=== PATIENT | male | born 1955 | race Caucasian/White ===

== ENCOUNTER 2018-06-06 07:47 | Inpatient (IN) | payer MEDICARE, OTHER ==
[~2018-06-06] VITALS: Ht 177.8 cm; Wt 118.1 kg
[2018-06-06 08:46] LABS: BASOPHILS % (AUTO) 0.1 % (0-1); EOSINOPHILS # (AUTO) 0.1 X10'3 (0-0.9); HEMATOCRIT 39.1 % (42.0-52.0); HEMOGLOBIN 13.3 g/dl (14.0-17.9); LYMPHOCYTES # (AUTO) 0.5 X10'3 (1.1-4.8); LYMPHOCYTES % (AUTO) 4.8 % (21-51); MEAN CORPUSCULAR HEMOGLOBIN 31.3 PG (27.0-31.0); MEAN CORPUSCULAR HGB CONC 33.9 % (33.0-36.5); MEAN CORPUSCULAR VOLUME 92.2 FL (78-98); MEAN PLATELET VOLUME 9.8 FL (7.4-10.4); MONOCYTES # (AUTO) 0.5 X10'3 (0-0.9); MONOCYTES % (AUTO) 4.6 % (2-12); NEUTROPHILS # (AUTO) 10.2 X10'3 (1.8-7.7); NEUTROPHILS % (AUTO) 89.5 % (42-75); PLATELET COUNT 196 X10'3 (140-440); RED BLOOD COUNT 4.24 X10'6 (4.70-6.10); RED CELL DISTRIBUTION WIDTH 12.3 % (11.5-14.5); WHITE BLOOD COUNT 11.4 X10'3 (4.5-11.0)
[2018-06-06 09:04] LABS: ALANINE AMINOTRANSFERASE 34 U/L (12-78); ALBUMIN 3.1 G/DL (3.4-5.0); ALBUMIN/GLOBULIN RATIO 0.7 (1.1-1.5); ALKALINE PHOSPHATASE 73 IU/L (46-116); ANION GAP 13 (8-16); ASPARTATE AMINO TRANSFERASE 33 U/L (10-37); BILIRUBIN,TOTAL 1.2 MG/DL (0.1-1.0); BLOOD UREA NITROGEN 17 MG/DL (7-18); BUN/CREATININE RATIO 14.2 (5.4-32.0); CALCIUM 8.5 MG/DL (8.5-10.1); CHLORIDE 100 MMOL/L (99-107); GLUCOSE 127 MG/DL (70-104); INR 1.1 INR; PROTHROMBIN TIME 10.9 SECONDS (9.0-12.0); SODIUM 138 MMOL/L (135-145); TOTAL CARBON DIOXIDE 25.3 MMOL/L (24-32); TOTAL PROTEIN 7.3 G/DL (6.4-8.2); eGFR 61 ML/MIN
[2018-06-06 09:05] LABS: PARTIAL THROMBOPLASTIN TIME 35 SECONDS (22-32)
[2018-06-06] MEDS ORDERED: levoFLOXACIN-Levaquin 750MG/D5 150 ML IV ONE (09:05)
[2018-06-06] MEDS ORDERED: normal saline 1000ML IV soln IVB ONE (09:05)
[2018-06-06] MEDS ORDERED: potassium Cl 20 mEq SR tablet PO STA (09:13)
[2018-06-06 09:16] LABS: TOTAL CELLS COUNTED 100
[2018-06-06 09:17] LABS: PLATELET ESTIMATE NORMAL; POLYCHROMASIA FEW; TOXIC GRANULATION 1+
[2018-06-06] MEDS ORDERED: ipratropium/albuterol 3ml nebule NEB ONE (09:20)
[2018-06-06] MEDS ORDERED: ondansetron/PF 4mg/2ml inj IV PRN (09:40)
[2018-06-06] MEDS ORDERED: azithromycin 250mg tablet PO ONE (09:40)
[2018-06-06] MEDS ORDERED: acetaminophen 325mg tablet PO PRN (09:40)
[2018-06-06] MEDS ORDERED: mag hydrox/Alum hydrox/simeth 30ml oral suspension PO PRN (09:40)
[2018-06-06] MEDS ORDERED: magnesium hydroxide 30ml (MOM) UD suspension PO PRN (09:40)
[2018-06-06] MEDS: ipratropium/albuterol 3ml nebule NEB SCH ×4 (12:06→23:35)
[2018-06-06 12:45] VITALS: BP 139/64
--- NOTE | 2018-06-06 13:00 | NUR ---
Patient in room PCU 3018B. I have received report from Cruz STEWART and had the opportunity to ask questions and assume patient care. First set of vital signs is: T 98.9 oral SpO2 95% on 3L via NC, BP 139/64, HR 95, RR 36.
[2018-06-06] MEDS ORDERED: potassium Cl 40MEQ/NS 500ml 500 ML IV PRN ×2 (14:55)
[2018-06-06] MEDS ORDERED: potassium Cl 20 mEq SR tablet PO PRN (14:55)
[2018-06-06 15:00] VITALS: BP 133/54
[2018-06-06] MEDS: K and/or MAG REPLACEMENT MC SCH (15:14)
[2018-06-06] MEDS: potassium Cl 20 mEq SR tablet PO PRN (17:36)
[2018-06-06 18:00] VITALS: BP 141/66
--- NOTE | 2018-06-06 18:24 | NUR ---
Problems reprioritized. Patient report given, questions answered & plan of care reviewed with Zulay STEWART.
--- NOTE | 2018-06-06 18:25 | NUR ---
Orientee documentation: I have reviewed and agree with all interventions, assessments performed and documented by Scott STEWART. Orientee Medication Administration: For this medication-pass time frame, all medication were reviewed, dispensed, administered and documented per hospital policy by Scott STEWART.
--- NOTE | 2018-06-06 18:30 | NUR ---
Patient in room PCU 3018. I have received report from Scott STEWART and had the opportunity to ask questions and assume patient care with Yvette STEWART.
--- NOTE | 2018-06-06 19:15 | NUR ---
Patient in room U 3018B. I have received report from Scott STEWART and had the opportunity to ask questions and assume patient care. Patient sitting on the side of the bed. No needs at this time.
[2018-06-06] MEDS: heparin, porcine 5000 units/ml vial SQ SCH (20:25)
--- NOTE | 2018-06-06 21:14 | NUR ---
Problems reprioritized. Patient report given, questions answered & plan of care reviewed with Ehsan STEWART.
[2018-06-06 23:00] VITALS: BP 122/71
[2018-06-07 03:00] VITALS: BP 119/58
[2018-06-07] MEDS: ipratropium/albuterol 3ml nebule NEB SCH ×5 (04:03→20:31)
[2018-06-07 05:31] LABS: CLARITY,URINE CLEAR (Clear); COLOR,URINE AMBER (Yellow); GLUCOSE, URINE NEGATIVE (Neg); KETONES,URINE 15 mg/dl (Neg); LEUKOCYTE ESTERASE ,URINE NEGATIVE (Neg); NITRITES, URINE NEGATIVE (Neg); OCCULT BLOOD,URINE TRACE-INTACT (Neg); PH,URINE 5.5 (4.8-8.0); PROTEIN,URINE 100 mg/dl (Neg); UA COLLECTION TYPE CLN CATCH MIDSTREAM
[2018-06-07 05:40] LABS: WBC,URINE 0-4 /HPF (0-4)
[2018-06-07 05:42] LABS: BACTERIA,URINE FEW /HPF (Neg); MUCUS STRANDS MANY /LPF (Neg); RBC,URINE 0-2 /HPF (0-2); SQUAMOUS EPITHELIAL CELL,UR FEW /LPF (FEW)
[2018-06-07 06:00] VITALS: BP 139/70
--- NOTE | 2018-06-07 06:41 | NUR ---
Patient in room PCU 3018. I have received report from Aly STEWART and had the opportunity to ask questions and assume patient care. Pt alert and oriented X 4. Will continue to monitor.
[2018-06-07 06:43] LABS: BASOPHILS % (AUTO) 0.2 % (0-1); EOSINOPHILS # (AUTO) 0.1 X10'3 (0-0.9); EOSINOPHILS % (AUTO) 0.8 % (0-6); HEMATOCRIT 35.7 % (42.0-52.0); HEMOGLOBIN 12.3 g/dl (14.0-17.9); LYMPHOCYTES # (AUTO) 0.8 X10'3 (1.1-4.8); LYMPHOCYTES % (AUTO) 9.4 % (21-51); MEAN CORPUSCULAR HEMOGLOBIN 31.9 PG (27.0-31.0); MEAN CORPUSCULAR HGB CONC 34.4 % (33.0-36.5); MEAN CORPUSCULAR VOLUME 92.9 FL (78-98); MEAN PLATELET VOLUME 10.4 FL (7.4-10.4); MONOCYTES # (AUTO) 0.7 X10'3 (0-0.9); MONOCYTES % (AUTO) 8.2 % (2-12); NEUTROPHILS # (AUTO) 7.2 X10'3 (1.8-7.7); NEUTROPHILS % (AUTO) 81.4 % (42-75); PLATELET COUNT 195 X10'3 (140-440); RED BLOOD COUNT 3.84 X10'6 (4.70-6.10); RED CELL DISTRIBUTION WIDTH 12.6 % (11.5-14.5); WHITE BLOOD COUNT 8.9 X10'3 (4.5-11.0)
[2018-06-07 06:47] LABS: ALANINE AMINOTRANSFERASE 60 U/L (12-78); ALBUMIN 2.6 G/DL (3.4-5.0); ALBUMIN/GLOBULIN RATIO 0.6 (1.1-1.5); ALKALINE PHOSPHATASE 62 IU/L (46-116); ANION GAP 12 (8-16); ASPARTATE AMINO TRANSFERASE 58 U/L (10-37); BILIRUBIN,TOTAL 0.7 MG/DL (0.1-1.0); BLOOD UREA NITROGEN 16 MG/DL (7-18); CALCIUM 8.4 MG/DL (8.5-10.1); CHLORIDE 103 MMOL/L (99-107); CREATININE 1.07 MG/DL (0.60-1.10); GLUCOSE 107 MG/DL (70-104); POTASSIUM 3.2 MMOL/L (3.5-5.1); SODIUM 139 MMOL/L (135-145); TOTAL CARBON DIOXIDE 23.6 MMOL/L (24-32); TOTAL PROTEIN 6.7 G/DL (6.4-8.2); eGFR 69 ML/MIN
[2018-06-07] MEDS: potassium Cl 20 mEq SR tablet PO PRN ×2 (07:43→18:16)
[2018-06-07] MEDS: CefTRIAXone 2gm/D5W 50ml 50 ML IV SCH (07:44)
[2018-06-07] MEDS: azithromycin 250mg tablet PO SCH (07:44)
[2018-06-07] MEDS: heparin, porcine 5000 units/ml vial SQ SCH ×2 (07:44→20:25)
[2018-06-07] MEDS: K and/or MAG REPLACEMENT MC SCH (08:00)
[2018-06-07 09:01] LABS: MAGNESIUM 2.2 MG/DL (1.5-2.4)
[2018-06-07] MEDS ORDERED: pneumococcal 23-VAL P-sac vacc 25 mcg/0.5ml vial IMVAC ONE (10:00)
[2018-06-07 11:00] VITALS: BP 130/72
[2018-06-07] MEDS ORDERED: ALFU10TA PO (13:55)
[2018-06-07] MEDS ORDERED: LOSA100T57 PO (13:55)
[2018-06-07] MEDS ORDERED: AMLO5TAB PO (13:55)
[2018-06-07] MEDS ORDERED: LOVA20TA2 PO (13:55)
[2018-06-07] MEDS ORDERED: LOSA1TAB41 PO (14:11)
[2018-06-07 15:00] VITALS: BP 132/69
--- NOTE | 2018-06-07 18:40 | NUR ---
Problems reprioritized. Patient report given, questions answered & plan of care reviewed with Silas STEWART.
[2018-06-07 19:00] VITALS: BP 145/72
[2018-06-07] MEDS: tamsulosin 0.4mg capsule PO SCH (20:24)
[2018-06-07 23:00] VITALS: BP 151/89
[2018-06-08] MEDS: ipratropium/albuterol 3ml nebule NEB SCH ×7 (00:01→23:06)
[2018-06-08 03:00] VITALS: BP 133/71
[2018-06-08 05:43] LABS: BASOPHILS % (AUTO) 0.3 % (0-1); EOSINOPHILS # (AUTO) 0.3 X10'3 (0-0.9); EOSINOPHILS % (AUTO) 3.3 % (0-6); HEMATOCRIT 37.3 % (42.0-52.0); HEMOGLOBIN 12.6 g/dl (14.0-17.9); MEAN CORPUSCULAR HEMOGLOBIN 31.6 PG (27.0-31.0); MEAN CORPUSCULAR HGB CONC 33.8 % (33.0-36.5); MEAN CORPUSCULAR VOLUME 93.5 FL (78-98); MEAN PLATELET VOLUME 8.8 FL (7.4-10.4); MONOCYTES # (AUTO) 0.7 X10'3 (0-0.9); MONOCYTES % (AUTO) 7.5 % (2-12); NEUTROPHILS # (AUTO) 7.1 X10'3 (1.8-7.7); NEUTROPHILS % (AUTO) 77.9 % (42-75); PLATELET COUNT 232 X10'3 (140-440); RED BLOOD COUNT 3.99 X10'6 (4.70-6.10); RED CELL DISTRIBUTION WIDTH 13.3 % (11.5-14.5); WHITE BLOOD COUNT 9.1 X10'3 (4.5-11.0)
[2018-06-08 06:00] VITALS: BP 135/67
[2018-06-08 06:00] LABS: ALANINE AMINOTRANSFERASE 178 U/L (12-78); ALBUMIN 2.6 G/DL (3.4-5.0); ALBUMIN/GLOBULIN RATIO 0.7 (1.1-1.5); ALKALINE PHOSPHATASE 64 IU/L (46-116); ANION GAP 10 (8-16); ASPARTATE AMINO TRANSFERASE 121 U/L (10-37); BILIRUBIN,TOTAL 0.5 MG/DL (0.1-1.0); BLOOD UREA NITROGEN 16 MG/DL (7-18); BUN/CREATININE RATIO 15.8 (5.4-32.0); CHLORIDE 106 MMOL/L (99-107); CREATININE 1.01 MG/DL (0.60-1.10); GLUCOSE 112 MG/DL (70-104); POTASSIUM 3.6 MMOL/L (3.5-5.1); SODIUM 140 MMOL/L (135-145); TOTAL CARBON DIOXIDE 24.3 MMOL/L (24-32); TOTAL PROTEIN 6.6 G/DL (6.4-8.2); eGFR 74 ML/MIN
--- NOTE | 2018-06-08 06:45 | NUR ---
Patient in room PCU 3018. I have received report from Silas STEWART and had the opportunity to ask questions and assume patient care. ill continue to monitor.
[2018-06-08] MEDS: K and/or MAG REPLACEMENT MC SCH (08:00)
[2018-06-08] MEDS: CefTRIAXone 2gm/D5W 50ml 50 ML IV SCH (08:12)
[2018-06-08] MEDS: losartan 50mg tablet PO SCH (08:13)
[2018-06-08] MEDS: azithromycin 250mg tablet PO SCH (08:14)
[2018-06-08] MEDS: HYDROchlorothiazide 12.5mg capsule PO SCH (08:14)
[2018-06-08] MEDS: amLODIPine 5mg tablet PO SCH (08:14)
[2018-06-08] MEDS: atorvastatin 10mg tablet PO SCH (08:14)
[2018-06-08] MEDS: tamsulosin 0.4mg capsule PO SCH ×2 (08:15→19:23)
[2018-06-08] MEDS: heparin, porcine 5000 units/ml vial SQ SCH ×2 (08:16→19:22)
[2018-06-08 11:00] VITALS: BP 134/71
[2018-06-08] MEDS ORDERED: predniSONE 20 mg tablet PO ONE (11:15)
[2018-06-08 15:00] VITALS: BP 101/49
--- NOTE | 2018-06-08 18:11 | NUR ---
Problems reprioritized. Patient report given, questions answered & plan of care reviewed with Silas STEWART.
[2018-06-08 19:00] VITALS: BP 134/74
--- NOTE | 2018-06-08 20:40 | NUR ---
promotional table spacer PAGER ID: [phone] MESSAGE: Silas briseno [id number] [id number], admitted for R/S PNE Pt requesting sleeping pill
[2018-06-08] MEDS: temazepam 15mg capsule PO PRN (21:23)
[2018-06-08 23:00] VITALS: BP 119/75
[2018-06-09 03:00] VITALS: BP 161/100
[2018-06-09] MEDS: ipratropium/albuterol 3ml nebule NEB SCH ×6 (03:09→23:46)
[2018-06-09 06:00] VITALS: BP 132/72
[2018-06-09 06:07] LABS: BASOPHILS % (AUTO) 0.1 % (0-1); EOSINOPHILS # (AUTO) 0.3 X10'3 (0-0.9); HEMOGLOBIN 12.7 g/dl (14.0-17.9); LYMPHOCYTES # (AUTO) 1.3 X10'3 (1.1-4.8); LYMPHOCYTES % (AUTO) 12.2 % (21-51); MEAN CORPUSCULAR HEMOGLOBIN 31.1 PG (27.0-31.0); MEAN CORPUSCULAR HGB CONC 33.5 % (33.0-36.5); MEAN CORPUSCULAR VOLUME 92.9 FL (78-98); MEAN PLATELET VOLUME 9.5 FL (7.4-10.4); MONOCYTES # (AUTO) 0.6 X10'3 (0-0.9); MONOCYTES % (AUTO) 5.8 % (2-12); NEUTROPHILS # (AUTO) 8.4 X10'3 (1.8-7.7); NEUTROPHILS % (AUTO) 78.9 % (42-75); PLATELET COUNT 273 X10'3 (140-440); RED BLOOD COUNT 4.09 X10'6 (4.70-6.10); RED CELL DISTRIBUTION WIDTH 12.9 % (11.5-14.5); WHITE BLOOD COUNT 10.7 X10'3 (4.5-11.0)
--- NOTE | 2018-06-09 06:17 | NUR ---
Patient in room PCU 3018. I have received report from Silas STEWART and had the opportunity to ask questions and assume patient care.
[2018-06-09 06:20] LABS: ALANINE AMINOTRANSFERASE 161 U/L (12-78); ALBUMIN 2.6 G/DL (3.4-5.0); ALBUMIN/GLOBULIN RATIO 0.6 (1.1-1.5); ALKALINE PHOSPHATASE 70 IU/L (46-116); ANION GAP 11 (8-16); ASPARTATE AMINO TRANSFERASE 59 U/L (10-37); BILIRUBIN,TOTAL 0.5 MG/DL (0.1-1.0); CALCIUM 8.6 MG/DL (8.5-10.1); CHLORIDE 105 MMOL/L (99-107); CREATININE 0.92 MG/DL (0.60-1.10); GLUCOSE 106 MG/DL (70-104); POTASSIUM 3.8 MMOL/L (3.5-5.1); SODIUM 140 MMOL/L (135-145); TOTAL CARBON DIOXIDE 24.4 MMOL/L (24-32); TOTAL PROTEIN 6.8 G/DL (6.4-8.2); eGFR 83 ML/MIN
[2018-06-09 06:34] LABS: BLOOD UREA NITROGEN 15 MG/DL (7-18); BUN/CREATININE RATIO 16.3 (5.4-32.0)
[2018-06-09] MEDS: CefTRIAXone 2gm/D5W 50ml 50 ML IV SCH (07:40)
[2018-06-09] MEDS: atorvastatin 10mg tablet PO SCH (07:40)
[2018-06-09] MEDS: tamsulosin 0.4mg capsule PO SCH ×2 (07:41→19:22)
[2018-06-09] MEDS: amLODIPine 5mg tablet PO SCH (07:41)
[2018-06-09] MEDS: HYDROchlorothiazide 12.5mg capsule PO SCH (07:41)
[2018-06-09] MEDS: predniSONE 20 mg tablet PO SCH (07:41)
[2018-06-09] MEDS: losartan 50mg tablet PO SCH (07:41)
[2018-06-09] MEDS: azithromycin 250mg tablet PO SCH (07:41)
[2018-06-09] MEDS: heparin, porcine 5000 units/ml vial SQ SCH ×2 (07:42→19:23)
[2018-06-09] MEDS: K and/or MAG REPLACEMENT MC SCH (08:00)
[2018-06-09 11:00] VITALS: BP_SYST 132; BP_SYST 135; BP_DIAS 72; BP_DIAS 73
[2018-06-09 18:00] VITALS: BP 126/73
--- NOTE | 2018-06-09 18:33 | NUR ---
Patient in room PCU 3018. I have received report from Lori STEWART and had the opportunity to ask questions and assume patient care.
--- NOTE | 2018-06-09 18:33 | NUR ---
Problems reprioritized. Patient report given, questions answered & plan of care reviewed with Babita STEWART.
[2018-06-09] MEDS: lactobacillus rhamnosus 10,000 MMU CELLS/CAPSULE PO SCH (19:22)
[2018-06-09] MEDS: temazepam 15mg capsule PO PRN (21:18)
[2018-06-09 22:00] VITALS: BP 144/81
[2018-06-10 02:00] VITALS: BP 144/86
[2018-06-10] MEDS: ipratropium/albuterol 3ml nebule NEB SCH ×3 (03:31→11:00)
[2018-06-10 05:48] LABS: BASOPHILS % (AUTO) 0.4 % (0-1); EOSINOPHILS # (AUTO) 0.3 X10'3 (0-0.9); EOSINOPHILS % (AUTO) 2.9 % (0-6); HEMOGLOBIN 12.5 g/dl (14.0-17.9); LYMPHOCYTES # (AUTO) 1.8 X10'3 (1.1-4.8); LYMPHOCYTES % (AUTO) 16.7 % (21-51); MEAN CORPUSCULAR HEMOGLOBIN 30.9 PG (27.0-31.0); MEAN CORPUSCULAR HGB CONC 32.9 % (33.0-36.5); MEAN CORPUSCULAR VOLUME 93.9 FL (78-98); MEAN PLATELET VOLUME 9.2 FL (7.4-10.4); MONOCYTES # (AUTO) 0.7 X10'3 (0-0.9); MONOCYTES % (AUTO) 6.7 % (2-12); NEUTROPHILS # (AUTO) 7.8 X10'3 (1.8-7.7); NEUTROPHILS % (AUTO) 73.3 % (42-75); PLATELET COUNT 291 X10'3 (140-440); RED BLOOD COUNT 4.04 X10'6 (4.70-6.10); RED CELL DISTRIBUTION WIDTH 13.1 % (11.5-14.5); WHITE BLOOD COUNT 10.6 X10'3 (4.5-11.0)
[2018-06-10 06:00] VITALS: BP 134/77
[2018-06-10 06:08] LABS: ALANINE AMINOTRANSFERASE 199 U/L (12-78); ALBUMIN 2.7 G/DL (3.4-5.0); ALBUMIN/GLOBULIN RATIO 0.7 (1.1-1.5); ALKALINE PHOSPHATASE 68 IU/L (46-116); ANION GAP 10 (8-16); ASPARTATE AMINO TRANSFERASE 113 U/L (10-37); BILIRUBIN,TOTAL 0.3 MG/DL (0.1-1.0); BLOOD UREA NITROGEN 16 MG/DL (7-18); BUN/CREATININE RATIO 16.2 (5.4-32.0); CALCIUM 8.6 MG/DL (8.5-10.1); CHLORIDE 104 MMOL/L (99-107); CREATININE 0.99 MG/DL (0.60-1.10); GLUCOSE 96 MG/DL (70-104); POTASSIUM 3.6 MMOL/L (3.5-5.1); SODIUM 141 MMOL/L (135-145); TOTAL CARBON DIOXIDE 27.2 MMOL/L (24-32); TOTAL PROTEIN 6.5 G/DL (6.4-8.2); eGFR 76 ML/MIN
--- NOTE | 2018-06-10 06:30 | NUR ---
Patient in room PCU 3018. I have received report from TERRY Jc and had the opportunity to ask questions and assume patient care.
--- NOTE | 2018-06-10 06:36 | NUR ---
Problems reprioritized. Patient report given, questions answered & plan of care reviewed with Yohana STEWART.
[2018-06-10] MEDS: tamsulosin 0.4mg capsule PO SCH (07:20)
[2018-06-10] MEDS: atorvastatin 10mg tablet PO SCH (07:20)
[2018-06-10] MEDS: lactobacillus rhamnosus 10,000 MMU CELLS/CAPSULE PO SCH (07:20)
[2018-06-10] MEDS: CefTRIAXone 2gm/D5W 50ml 50 ML IV SCH (07:20)
[2018-06-10] MEDS: HYDROchlorothiazide 12.5mg capsule PO SCH (07:21)
[2018-06-10] MEDS: azithromycin 250mg tablet PO SCH (07:21)
[2018-06-10] MEDS: amLODIPine 5mg tablet PO SCH (07:22)
[2018-06-10] MEDS: losartan 50mg tablet PO SCH (07:22)
[2018-06-10] MEDS: heparin, porcine 5000 units/ml vial SQ SCH (07:23)
[2018-06-10] MEDS: predniSONE 20 mg tablet PO SCH (07:32)
[2018-06-10] MEDS: K and/or MAG REPLACEMENT MC SCH (08:00)
[2018-06-10] MEDS ORDERED: ALBU8HFA PO (10:38)
[2018-06-10] MEDS ORDERED: PRED20TA PO (10:38)
[2018-06-10] MEDS ORDERED: LEVO750T21 PO (10:38)
[2018-06-10 11:00] VITALS: BP 143/74
--- NOTE | 2018-06-10 11:01 | NUR ---
O2 Sat at rest on room air: 94 % If below 89%: Recovery O2 Sat at rest on ___LPM:___%:___% via (mask/nasal cannula, etc..) No further documentation is necessary. If O2 Sat did not drop below 89% on room air,ambulate patient on room air. O2 Sat while ambulating on room air: 91 % PT AMBULATED 300 FT. If patient does not drop below 89% while ambulating, he/she does not qualify for home O2.
--- NOTE | 2018-06-10 13:06 | NUR ---
1100 SVN [place] TRIAGED
--- NOTE | 2018-06-10 13:40 | NUR ---
Patient left alert and oriented, stable for discharge. New medications given to patient through [facility] bedside. All patient teaching given to patient, verbal and written hand outs. all questions and concerns addressed. patient understands the importance of follow up with PCP, following all medication instructions, and to return to ER if symptoms worsen. IV removed, cannula intact. Tele removed and returned to receptionist telephone operator. Pneumococcal vaccine given prior to discharge, with informational hand out given. patient accompanied by , to go home via private vehicle. Patient wheeled down by RN. Room stripped.
== END 2018-06-10 13:40 | disposition home or self-care (01) | DRG 193 ==
LOC: ER 07:48 → ED HOLD 09:36 → PCU 3S 12:50 → CMPBEDREQ 06-08 19:34
PROVIDERS: ADMIT Family Medicine; ATTEND Family Medicine
PROC: 3E0234Z Introduction of Serum, Toxoid and Vaccine into Muscle, Percutaneous Approach (ICD-10-PCS; principal; 2018-06-07)
DX: J18.1 Lobar pneumonia, unspecified organism (principal); J96.01 Acute respiratory failure with hypoxia; J44.1 Chronic obstructive pulmonary disease with (acute) exacerbation; J44.0 Chronic obstructive pulmonary disease with (acute) lower respiratory infection; E87.6 Hypokalemia; E78.00 Pure hypercholesterolemia, unspecified; E78.5 Hyperlipidemia, unspecified; I10 Essential (primary) hypertension; K21.9 Gastro-esophageal reflux disease without esophagitis; N40.0 Benign prostatic hyperplasia without lower urinary tract symptoms; Z88.2 Allergy status to sulfonamides; Z87.891 Personal history of nicotine dependence; Z23 Encounter for immunization
CPT/HCPCS: 36415; 71045; 80053; 81001; 83605; 83735; 83880; 84145; 84484; 85025; 85610; 85730; 87040; 87070; 87502; 87503; 93005; 94640; 94760; 96374; 99285; G0378; J0696; J1644; J1956; J7512